=== PATIENT | male | born 1960 | race Caucasian/White ===

== ENCOUNTER 2020-09-06 19:56 | Emergency (ER) | payer MEDICARE ==
[2020-09-06] MEDS ORDERED: TENIVAC VIAL IM ONE ×2 (20:19→20:28)
[2020-09-06] MEDS ORDERED: Augmentin 875-125 Tablet PO ONE (20:27)
[2020-09-06] MEDS ORDERED: Augmentin 875-125 Tablet ONE (20:27)
--- NOTE | 2020-09-06 20:38 | ERPHSYRPT ---
- History of Present Illness Time Seen by Provider: 09/06/20 19:57 Source: patient Exam Limitations: no limitations Patient Subjective Stated Complaint: pt states he broke up a fight between his 2 dogs. states he got bit on his lt arm and rt hand. lt arm now has redness and swelling Triage Nursing Assessment: pt alert and oriented, answers questions approp. pt ambulatory with steady gait noted. respirations nonlabored. scabbing noted to lt forearm with redness surrounding and extending to wrist. warmth noted also Physician History: Patient is here for dog bite left forearm. Occurred 2 days ago. No falls or other trauma. Patient states has since gotten red, warm to the touch. It does appear infected. He has not been on any antibiotics. Has not seen his PCP. Location: left forearm dog bite Quality: redness, tender Radiation: none Severity: moderate Duration: 2 days Timing: after bite Modifying factors/associated signs and symptoms: not up to date on tdap Allergies/Adverse Reactions: No Known Drug Allergies Allergy (Verified 09/06/20 20:26) Hx Tetanus, Diphtheria Vaccination/Date Given: No (unsure) Hx Influenza Vaccination/Date Given: No Hx Pneumococcal Vaccination/Date Given: No Immunizations Up to Date: No Travel Risk - International Travel Have you traveled outside of the country in past 3 weeks: No - Coronavirus Screening Are you exhibiting any of the following symptoms?: No Close contact with a COVID-19 positive Pt in past 14-21 Days: No - Vaccine Status Have you recieved a Covid-19 vaccination: No - Review of Systems Constitutional: No Fever, No Chills Eyes: No Symptoms Ears, Nose, & Throat: No Symptoms Respiratory: No Cough, No Dyspnea Cardiac: No Chest Pain, No Edema, No Syncope Abdominal/Gastrointestinal: No Abdominal Pain, No Nausea, No Vomiting, No Diarrhea Genitourinary Symptoms: No Dysuria Musculoskeletal: Other (Dog bite left forearm), No Back Pain, No Neck Pain Skin: No Rash Neurological: No Dizziness, No Focal Weakness, No Sensory Changes Psychological: No Symptoms Endocrine: No Symptoms All Other Systems: Reviewed and Negative - Past Medical History Pertinent Past Medical History: Yes ENT History: Other GI Medical History: GERD Psycho-Social History: Anxiety Other Medical History: detatched retina x2 - Past Surgical History Past Surgical History: Yes Gastrointestinal: Cholecystectomy - Social History Smoking Status: Never smoker Drug Use: none - Nursing Vital Signs Nursing Vital Signs: Initial Vital Signs Temperature 98.2 F 09/06/20 20:08 Pulse Rate 97 H 09/06/20 20:08 Respiratory Rate 18 09/06/20 20:08 Blood Pressure 136/107 09/06/20 20:08 O2 Sat by Pulse Oximetry 97 09/06/20 20:08 Pain Scale Pain Intensity 5 - Physical Exam General Appearance: no apparent distress, alert Eye Exam: PERRL/EOMI, eyes nml inspection Ears, Nose, Throat Exam: normal ENT inspection, TMs normal, pharynx normal, moist mucous membranes Neck Exam: normal inspection, non-tender, supple, full range of motion Respiratory Exam: normal breath sounds, lungs clear, No respiratory distress Cardiovascular Exam: regular rate/rhythm, normal heart sounds, normal peripheral pulses Gastrointestinal/Abdomen Exam: soft, normal bowel sounds, No tenderness, No mass Back Exam: normal inspection, normal range of motion, No CVA tenderness, No vertebral tenderness Extremity Exam: normal inspection, normal range of motion, pelvis stable Neurologic Exam: alert, oriented x 3, cooperative, normal mood/affect, nml cerebellar function, nml station & gait, sensation nml, No motor deficits Skin Exam: normal color, warm, dry, No rash Lymphatic Exam: No adenopathy SpO2 Interpretation: normal SpO2: 97 Comments: 09/06/20 20:39 Patient has 2 well-healed dog bites to his right arm and hand. No obvious infection there. No redness tenderness or swelling. On his left forearm he has an area of abrasion and puncture wound. Both of these are well-healed. However, the surrounding tissue is red, tender to the touch. No areas of fluctuance or drainable abscess on my exam. 2+ pulses, no signs of compartment syndrome, no signs of foreign bodies. - Course Nursing assessment & vital signs reviewed: Yes Ordered Tests: Medication Summary Discontinued Medications Generic Name Dose Route Start Last Admin Trade Name Troyq PRN Reason Stop Dose Admin Amoxicillin/Clavulanate Potassium 875 mg 09/06/20 20:27 Augmentin 875-125 Tablet PO 09/06/20 20:28 STAT ONE Amoxicillin/Clavulanate Potassium Confirm 09/06/20 20:27 Augmentin 875-125 Tablet Administered 09/06/20 20:28 Dose 875 mg .ROUTE .STK-MED ONE Tetanus/Diphtheria Toxoids Adsorbed 0.5 ml 09/06/20 20:19 Tenivac Vial IM 09/06/20 20:20 .ONCE ONE Tetanus/Diphtheria Toxoids Adsorbed Confirm 09/06/20 20:28 Tenivac Vial Administered 09/06/20 20:29 Dose 0.5 ml IM .STK-MED ONE - Progress Progress: improved Progress Note: 09/06/20 20:39 No signs of abscess to drain on physical exam. Will give a tetanus shot to the patient. We will give his first dose of Augmentin tonight. He will have a 10- day course of Augmentin to go home with. - Departure Departure Disposition: Home Clinical Impression: Dog bite of left arm Condition: Stable Critical Care Time: No Referrals: JANET VELA [ACTIVE STAFF] - Provider,Unknown [Primary Care Provider] - Instructions: Animal Bites (DC) Prescriptions: Amox Tr/Potass Clav. 875 mg [Augmentin 875-125 Tablet] 875 mg PO BID 10 Days #20 tablet
[2020-09-06 21:10] VITALS: BP 149/93; PULSE 89; O2SAT 98
== END 2020-09-06 20:58 | disposition home or self-care (01) ==
LOC: ED 19:56
DX: S51.852A Open bite of left forearm, initial encounter (principal); S61.451A Open bite of right hand, initial encounter; M79.89 Other specified soft tissue disorders
CPT/HCPCS: 90471; 90714; 99283; A9270-GY

== ENCOUNTER 2021-02-05 09:50 | Emergency (ER) | payer BC, MEDICARE ==
[2021-02-05] MEDS ORDERED: Decadron 4 MG PO ONE (10:30)
--- NOTE | 2021-02-05 10:32 | ERPHSYRPT ---
- History of Present Illness Time Seen by Provider: 02/05/21 10:25 Source: patient Exam Limitations: no limitations Patient Subjective Stated Complaint: Went to [facility] on Monday and negative covid test and clear chest xrays, cough, states that he hasn't slept for a few d ays due to the cough Triage Nursing Assessment: Pt brought was brought to the ER by his , hypertensive, denies pain, states that he is exhaused from no sleep but doesn't have any issues other than the cough, skin n/w/d, pulses normal, denies N&V, denies diarrhea, doesn't appear to be in any distress Physician History: 60 years old male with a history of SHAMEKA D, neuropathy, hyperlipidemia presented in the ER with 1 week history of worsening minimal productive cough with some shortness of breath at times. Patient was seen outpatient at [facility] with negative chest x-ray and COVID-19 test and currently on doxycycline but still having same cough and shortness of breath. Patient feels weak fatigued tired, dizzy lightheaded, lack of energy to do his routine duties. Is vaccinated against COVID-19 with murder now. No fever or chills reported. Oxygen saturation around 96% on room air without any obvious difficulty breathing. Timing/Duration: week(s) (1), constant, gradual onset, worse Activities at Onset: activity Severity of Dyspnea-Max: moderate Severity of Dyspnea-Current: moderate Possible Cause: unknown cause Modifying Factors: Worsens With: coughing, deep breath, exertion Associated Symptoms: cough, chest pain/discomfort, wheezing, weakness, dizzin ess, productive cough, tightness, No fever, No insomnia, No heaviness, No heart racing, No lightheadedness, No leg swelling, No muscle spasms feet, No muscle spasms hands, No painful breathing Allergies/Adverse Reactions: No Known Drug Allergies Allergy (Verified 02/05/21 10:11) Home Medications: Doxycycline Hyclate 100 mg [Vibramycin 100 MG] 100 mg PO BID 02/05/21 [History] Gabapentin 100 mg [Neurontin 100 MG] 100 mg PO TID 02/05/21 [History] Hydroxyzine HCl 25 mg [Atarax 25 mg] 25 mg PO QID 02/05/21 [History] Omeprazole 40 mg PO DAILY 02/05/21 [History] Potassium Gluconate [Potassium] 99 mg PO DAILY 02/05/21 [History] Rosuvastatin Calcium [Crestor] 10 mg PO DAILY 02/05/21 [History] clonazePAM [Clonazepam] 0.5 mg PO DAILY 02/05/21 [History] Hx Tetanus, Diphtheria Vaccination/Date Given: No (unsure) Hx Influenza Vaccination/Date Given: No Hx Pneumococcal Vaccination/Date Given: No Travel Risk - International Travel Have you traveled outside of the country in past 3 weeks: No - Coronavirus Screening Are you exhibiting any of the following symptoms?: Yes Symptoms: Cough: New Onset - Vaccine Status Have you recieved a Covid-19 vaccination: Yes Expansion [employer] Builder: Moderna - Vaccination Dates Date of 2cond Vaccination (if applicable): 09/25/2020 - Review of Systems Constitutional: Fatigue, Weakness Eyes: No Symptoms Ears, Nose, & Throat: Nose Congestion, Throat Pain Respiratory: Cough, Wheezing Cardiac: No Symptoms Abdominal/Gastrointestinal: No Symptoms Genitourinary Symptoms: No Symptoms Musculoskeletal: No Symptoms Skin: No Symptoms Neurological: Dizziness, Headache Psychological: Anxiety Endocrine: No Symptoms Hematologic/Lymphatic: No Symptoms Immunological/Allergic: No Symptoms - Past Medical History Pertinent Past Medical History: Yes ENT History: Other GI Medical History: GERD Psycho-Social History: Anxiety Other Medical History: detatched retina x2 - Past Surgical History Past Surgical History: Yes Gastrointestinal: Cholecystectomy - Social History Smoking Status: Never smoker Exposure to second hand smoke: No Drug Use: none - Nursing Vital Signs Nursing Vital Signs: Initial Vital Signs Temperature 97.2 F 02/05/21 09:56 Pulse Rate 90 02/05/21 09:56 Respiratory Rate 24 02/05/21 09:56 Blood Pressure 152/107 02/05/21 09:56 O2 Sat by Pulse Oximetry 96 02/05/21 09:56 Pain Scale Pain Intensity 5 - Physical Exam General Appearance: no apparent distress, alert Eye Exam: PERRL/EOMI, eyes nml inspection Ears, Nose, Throat Exam: hearing grossly normal, nasal congestion, pharyngeal erythema Neck Exam: normal inspection, supple, full range of motion Respiratory Exam: rhonchi, wheezing, No respiratory distress Cardiovascular/Chest Exam: normal heart sounds, regular rate/rhythm Abdominal/Gastrointestinal Exam: soft, normal bowel sounds, No tenderness Extremity Exam: non-tender, normal range of motion Neurologic Exam: alert, oriented x 3, cooperative Skin Exam: normal color SpO2 Interpretation: normal SpO2: 97 O2 Delivery: Room Air - Course EKG Interpreted by Me: RATE (79), Sinus Rhythm, NORMAL AXIS, LAFB, NORMAL INTERVALS, Non-specific ST Changes Ordered Tests: Active Orders 24 hr Category Date Time Status Cash Application Representative STAT Care 02/05/21 10:26 Active EKG-ER Only STAT Care 02/05/21 10:25 Active CHEST 1 VIEW (PORTABLE) Stat Exams 02/05/21 10:25 Completed CHEST WITH CONTRAST [CT] Stat Exams 02/05/21 11:21 Completed CBC W DIFF Stat Lab 02/05/21 10:40 Completed CMP Stat Lab 02/05/21 10:40 Completed D-DIMER QUANTITATIVE Stat Lab 02/05/21 10:40 Completed Lactic Acid Stat Lab 02/05/21 10:55 Completed MAGNESIUM Stat Lab 02/05/21 10:40 Completed NT PRO BNP Stat Lab 02/05/21 10:40 Completed TROPONIN Q3H Lab 02/05/21 10:40 Completed TROPONIN Q3H Lab 02/05/21 13:25 Received TROPONIN Q3H Lab 02/05/21 16:30 Ordered TROPONIN Q3H Lab 02/05/21 19:30 Ordered TROPONIN Q3H Lab 02/05/21 22:30 Ordered UA W/RFX UR CULTURE Stat Lab 02/05/21 10:25 Completed Medication Summary Discontinued Medications Generic Name Dose Route Start Last Admin Trade Name Freq PRN Reason Stop Dose Admin Hydrocodone Bitart/Acetaminophen 10 ml 02/05/21 12:06 02/05/21 13:04 Hydrocodone-Acetamin 2.5-108/5 Ml Solution PO 02/05/21 12:07 10 ml STAT STA Administration Hydrocodone Bitart/Acetaminophen Confirm 02/05/21 13:02 Hydrocodone-Acetamin 2.5-108/5 Ml Solution Administered 02/05/21 13:03 Dose 10 ml .ROUTE .STK-MED ONE Dexamethasone 6 mg 02/05/21 10:30 02/05/21 10:44 Decadron 4 Mg PO 02/05/21 10:31 6 mg 1XONLY ONE Administration Lab/Rad Data: Laboratory Result Diagrams 02/05/21 10:40 02/05/21 10:40 Laboratory Results 02/05/21 02/05/21 02/05/21 Range/Units 10:55 10:40 10:40 WBC (4.0-10.5) K/mm3 RBC (4.1-5.6) M/mm3 Hgb (12.5-18.0) gm/dl Hct (42-50) % MCV (78-100) fl MCH (26-32) pg MCHC (32-36) g/dl RDW (11.5-14.0) % Plt Count (150-450) K/mm3 MPV (7.5-11.0) fl Gran % (36.0-66.0) % Eos # (Auto) (0-0.5) Absolute Lymphs (auto) (1.0-4.6) Absolute Monos (auto) (0.0-1.3) Lymphocytes % (24.0-44.0) % Monocytes % (0.0-12.0) % Eosinophils % (0.00-5.0) % Basophils % (0.0-0.4) % Absolute Granulocytes (1.4-6.9) Basophils # (0-0.4) D-Dimer (215-500) ng/mL Sodium 140 (137-145) mmol/L Potassium 3.5 (3.5-5.1) mmol/L Chloride 105 (98-107) mmol/L Carbon Dioxide 25 (22-30) mmol/L Anion Gap 13.1 (5-15) MEQ/L BUN 14 (9-20) mg/dL Creatinine 0.81 (0.66-1.25) mg/dL Estimated GFR > 60.0 ML/MIN Glucose 106 (74-106) mg/dL Lactic Acid 1.3 (0.4-2.0) Calcium 9.2 (8.4-10.2) mg/dL Magnesium (1.6-2.3) mg/dL Total Bilirubin 0.70 (0.2-1.3) mg/dL AST 23 (17-59) U/L ALT 18 (0-50) U/L Alkaline Phosphatase 93 (38-126) U/L Troponin I < 0.012 (0.000-0.034) ng/mL NT-Pro-B Natriuret Pep (0-900) pg/mL Serum Total Protein 6.7 (6.3-8.2) g/dL Albumin 4.1 (3.5-5.0) g/dL Urine Color (YELLOW) Urine Appearance (CLEAR) Urine pH (5-6) Ur Specific [place] (1.005-1.025) Urine Protein (Negative) Urine Ketones (NEGATIVE) Urine Blood (0-5) Edd/ul Urine Nitrite (NEGATIVE) Urine Bilirubin (NEGATIVE) Urine Urobilinogen (0-1) mg/dL Ur Leukocyte Esterase (NEGATIVE) Urine WBC (Auto) (0-5) /HPF Urine RBC (Auto) (0-2) /HPF U Epithel Cells (Auto) (FEW) /HPF Urine Bacteria (Auto) (NEGATIVE) /HPF Urine Mucus (Auto) (NEGATIVE) /HPF Urine Culture Reflexed (NO) Urine Glucose (NEGATIVE) mg/dL 02/05/21 02/05/21 02/05/21 Range/Units 10:40 10:40 10:40 WBC 6.8 (4.0-10.5) K/mm3 RBC 5.03 (4.1-5.6) M/mm3 Hgb 14.1 (12.5-18.0) gm/dl Hct 42.0 (42-50) % MCV 83.5 (78-100) fl MCH 28.0 (26-32) pg MCHC 33.6 (32-36) g/dl RDW 13.6 (11.5-14.0) % Plt Count 171 (150-450) K/mm3 MPV 10.7 (7.5-11.0) fl Gran % 62.6 (36.0-66.0) % Eos # (Auto) 0.27 (0-0.5) Absolute Lymphs (auto) 1.71 (1.0-4.6) Absolute Monos (auto) 0.56 (0.0-1.3) Lymphocytes % 25.1 (24.0-44.0) % Monocytes % 8.2 (0.0-12.0) % Eosinophils % 4.0 (0.00-5.0) % Basophils % 0.1 (0.0-0.4) % Absolute Granulocytes 4.26 (1.4-6.9) Basophils # 0.01 (0-0.4) D-Dimer 912 H* (215-500) ng/mL Sodium (137-145) mmol/L Potassium (3.5-5.1) mmol/L Chloride (98-107) mmol/L Carbon Dioxide (22-30) mmol/L Anion Gap (5-15) MEQ/L BUN (9-20) mg/dL Creatinine (0.66-1.25) mg/dL Estimated GFR ML/MIN Glucose (74-106) mg/dL Lactic Acid (0.4-2.0) Calcium (8.4-10.2) mg/dL Magnesium 1.8 (1.6-2.3) mg/dL Total Bilirubin (0.2-1.3) mg/dL AST (17-59) U/L ALT (0-50) U/L Alkaline Phosphatase (38-126) U/L Troponin I (0.000-0.034) ng/mL NT-Pro-B Natriuret Pep 88.3 (0-900) pg/mL Serum Total Protein (6.3-8.2) g/dL Albumin (3.5-5.0) g/dL Urine Color (YELLOW) Urine Appearance (CLEAR) Urine pH (5-6) Ur Specific [place] (1.005-1.025) Urine Protein (Negative) Urine Ketones (NEGATIVE) Urine Blood (0-5) Edd/ul Urine Nitrite (NEGATIVE) Urine Bilirubin (NEGATIVE) Urine Urobilinogen (0-1) mg/dL Ur Leukocyte Esterase (NEGATIVE) Urine WBC (Auto) (0-5) /HPF Urine RBC (Auto) (0-2) /HPF U Epithel Cells (Auto) (FEW) /HPF Urine Bacteria (Auto) (NEGATIVE) /HPF Urine Mucus (Auto) (NEGATIVE) /HPF Urine Culture Reflexed (NO) Urine Glucose (NEGATIVE) mg/dL 02/05/21 Range/Units 10:25 WBC (4.0-10.5) K/mm3 RBC (4.1-5.6) M/mm3 Hgb (12.5-18.0) gm/dl Hct (42-50) % MCV (78-100) fl MCH (26-32) pg MCHC (32-36) g/dl RDW (11.5-14.0) % Plt Count (150-450) K/mm3 MPV (7.5-11.0) fl Gran % (36.0-66.0) % Eos # (Auto) (0-0.5) Absolute Lymphs (auto) (1.0-4.6) Absolute Monos (auto) (0.0-1.3) Lymphocytes % (24.0-44.0) % Monocytes % (0.0-12.0) % Eosinophils % (0.00-5.0) % Basophils % (0.0-0.4) % Absolute Granulocytes (1.4-6.9) Basophils # (0-0.4) D-Dimer (215-500) ng/mL Sodium (137-145) mmol/L Potassium (3.5-5.1) mmol/L Chloride (98-107) mmol/L Carbon Dioxide (22-30) mmol/L Anion Gap (5-15) MEQ/L BUN (9-20) mg/dL Creatinine (0.66-1.25) mg/dL Estimated GFR ML/MIN Glucose (74-106) mg/dL Lactic Acid (0.4-2.0) Calcium (8.4-10.2) mg/dL Magnesium (1.6-2.3) mg/dL Total Bilirubin (0.2-1.3) mg/dL AST (17-59) U/L ALT (0-50) U/L Alkaline Phosphatase (38-126) U/L Troponin I (0.000-0.034) ng/mL NT-Pro-B Natriuret Pep (0-900) pg/mL Serum Total Protein (6.3-8.2) g/dL Albumin (3.5-5.0) g/dL Urine Color YELLOW (YELLOW) Urine Appearance CLEAR (CLEAR) Urine pH 6.0 (5-6) Ur Specific [place] 1.015 (1.005-1.025) Urine Protein NEGATIVE (Negative) Urine Ketones NEGATIVE (NEGATIVE) Urine Blood SMALL (0-5) Edd/ul Urine Nitrite NEGATIVE (NEGATIVE) Urine Bilirubin NEGATIVE (NEGATIVE) Urine Urobilinogen NEGATIVE (0-1) mg/dL Ur Leukocyte Esterase NEGATIVE (NEGATIVE) Urine WBC (Auto) 3-5 (0-5) /HPF Urine RBC (Auto) 0-2 (0-2) /HPF U Epithel Cells (Auto) NONE (FEW) /HPF Urine Bacteria (Auto) NONE SEEN (NEGATIVE) /HPF Urine Mucus (Auto) SLIGHT (NEGATIVE) /HPF Urine Culture Reflexed NO (NO) Urine Glucose NEGATIVE (NEGATIVE) mg/dL - Progress Progress: improved, re-examined Air Movement: good Progress Note: 02/05/21 13:40 60-year-old is evaluated for worsening cough and flulike symptoms. Patient has stable vitals with maintaining of oxygen saturation around 97% at room air while in the ER without any obvious shortness of breath. Feeling much better after liquid Lortab which did help with cough. Lung grossly clear to auscultation. Grossly unremarkable lab work. Had mildly elevated D-dimer and CTA negative for pulmonary embolism but did show left upper lobe airspace disease. Patient has been taking doxycycline for the last few days and I will switch him to Levaquin and will give short course of steroid along with inhaler and some cough medications. Patient is immunized against COVID-19 and even if he have it Covid infection, statistics show it is not very worse. I think patient can be manag ed with outpatient treatment. Discussed in length about signs symptoms of worsening needing return to ER which he seems understanding. Stable for discharge. 02/05/21 13:42 Blood Culture(s) Obtained: Yes Antibiotics given: Yes Counseled pt/family regarding: lab results, diagnosis, need for follow-up, rad results - Departure Departure Disposition: Home Clinical Impression: Viral syndrome Pneumonia Qualifiers: Pneumonia type: due to unspecified organism Laterality: left Lung location: upper lobe of lung Qualified Code(s): J18.9 - Pneumonia, unspecified organism Condition: Stable Critical Care Time: No Referrals: DOCTOR,NO FAMILY [Primary Care Provider] - ROSA ISELA HONG MD [ACTIVE STAFF] - Follow Up with PCP/3 days Instructions: Pneumonia, Adult (DC), Cough, Adult (DC) Additional Instructions: Use albuterol inhaler and cough medications as needed. Continue with Levaquin and start taking doxycycline. Follow-up with your primary care physician for reevaluation in 3 days/early next week. Return to ER for worsening cough or if develop shortness of breath/persistent fever chills/chest pain etc. Prescriptions: Dexamethasone [Decadron] 6 mg PO DAILY #5 tablet Levofloxacin [Levaquin 500 MG Tablet] 500 mg PO DAILY #9 tablet Albuterol 8 gm Mdi Hfa [Ventolin Hfa MDI] 8 gm IH Q4H #1 gm
--- NOTE | 2021-02-05 10:45 | XRAY ---
Indication: Cough. Comparison: None Portable chest demonstrates minimal left base subsegmental atelectasis/scarring. Remaining heart and lungs unremarkable. Bony thorax intact with mild degenerative changes.
[2021-02-05 10:51] LABS: Absolute Neutrophil Ct (ANC) 4.26 (1.4-6.9); BASOPHIL % 0.1 % (0.0-0.4); Basophil (Absolute #) 0.01 (0-0.4); Eosinophil (Absolute #) 0.27 (0-0.5); Hemoglobin 14.1 gm/dl (12.5-18.0); Lymphocyte (Absolute #) 1.71 (1.0-4.6); Lymphocytes % 25.1 % (24.0-44.0); Mean Cell Volume 83.5 fl (78-100); Mean Corpuscular Hgb Concent. 33.6 g/dl (32-36); Mean Platelet Volume 10.7 fl (7.5-11.0); Monocyte (Absolute #) 0.56 (0.0-1.3); Monocytes % 8.2 % (0.0-12.0); Neutrophil % 62.6 % (36.0-66.0); Platelet Count 171 K/mm3 (150-450); Red Blood Count 5.03 M/mm3 (4.1-5.6); Red Cell Distribution Width 13.6 % (11.5-14.0); White Blood Count 6.8 K/mm3 (4.0-10.5)
[2021-02-05 11:11] LABS: MAGNESIUM 1.8 mg/dL (1.6-2.3); NT PRO BNP 88.3 pg/mL (0-900)
[2021-02-05 11:38] LABS: ALBUMIN 4.1 g/dL (3.5-5.0); ALKALINE PHOSPHATASE 93 U/L (38-126); ANION GAP 13.1 MEQ/L (5-15); BLOOD UREA NITROGEN 14 mg/dL (9-20); CHLORIDE 105 mmol/L (98-107); Calcium 9.2 mg/dL (8.4-10.2); Carbon Dioxide 25 mmol/L (22-30); Creatinine 1 0.81 mg/dL (0.66-1.25); EST GLOMERULAR FILTRATION RATE > 60.0 ML/MIN; Glucose 106 mg/dL (74-106); Potassium 3.5 mmol/L (3.5-5.1); SGOT/AST 23 U/L (17-59); SGPT/ALT 18 U/L (0-50); SODIUM 140 mmol/L (137-145); Total Protein 6.7 g/dL (6.3-8.2)
[2021-02-05 11:44] LABS: Appearance CLEAR (CLEAR); Bilirubin NEGATIVE (NEGATIVE); Blood SMALL Ery/ul (0-5); Glucose NEGATIVE (NEGATIVE); Ketones NEGATIVE (NEGATIVE); Leukocyte Esterase NEGATIVE (NEGATIVE); Mucus SLIGHT /HPF (NEGATIVE); Nitrite NEGATIVE (NEGATIVE); Protein,Urine Dip NEGATIVE (Negative); RBC 0-2 /HPF (0-2); Specific Gravity 1.015 (1.005-1.025); Urobilinogen NEGATIVE mg/dL (0-1)
[2021-02-05 11:46] LABS: Bacteria NONE SEEN /HPF (NEGATIVE)
[2021-02-05] MEDS ORDERED: HYDROCODONE-ACETAMIN 2.5-108/5 ML SOLUTION PO STA (12:06)
[2021-02-05] MEDS ORDERED: HYDROCODONE-ACETAMIN 2.5-108/5 ML SOLUTION ONE (13:02)
[2021-02-05 13:10] VITALS: BP 152/94; PULSE 58; O2SAT 97
--- NOTE | 2021-02-05 13:15 | XRAY ---
Indication: Cough, short of breath, and weakness. Elevated d-dimer. Suspect Covid 19. Multiple contiguous axial images obtained through the chest using 80 cc Isovue 370 contrast and PE protocol. Comparison: None Good opacification of the pulmonary arteries to include the lobar and segmental branches. No pulmonary embolus. Heart is not enlarged. Aorta is normal in course and caliber. Small mediastinal lymph nodes. No pathologic mediastinal/hilar lymphadenopathy. Lungs are underinflated with minimal lingula and bibasilar subsegmental atelectasis/scarring. Posterior right upper lobe demonstrates 1.2 cm focus of patchy groundglass airspace opacity. No consolidation or effusion. Bony thorax intact with mild flowing osteophytes throughout the spine. Limited upper abdomen demonstrates mild fatty liver and cholecystectomy clips. Impression: 1. Negative pulmonary embolus. 2. Solitary 1.2 cm focus of right upper lobe patchy ground glass airspace opacity. 3. Fatty liver.
[2021-02-05] MEDS ORDERED: Levofloxacin 250MG Tablet PO ONE (13:38)
[2021-02-05] MEDS ORDERED: Levofloxacin 250MG Tablet ONE (13:49)
== END 2021-02-05 14:20 | disposition home or self-care (01) ==
LOC: ED 09:50
DX: B34.9 Viral infection, unspecified (principal); J18.9 Pneumonia, unspecified organism
CPT/HCPCS: 36000; 36415; 71045; 71260; 80053; 81001; 83605; 83735; 83880; 84484; 85025; 85379; 87040; 93005; 93041; 99284; U0003; A9270-GY

== ENCOUNTER 2021-05-06 04:46 | Emergency (ER) | payer BC, MEDICARE ==
[2021-05-06 05:08] VITALS: BP 147/98; PULSE 84; O2SAT 98
[2021-05-06] MEDS ORDERED: DECADRON 10MG INJ. IM ONE (05:10)
--- NOTE | 2021-05-06 05:12 | ERPHSYRPT ---
- History of Present Illness Time Seen by Provider: 05/06/21 04:59 Patient Subjective Stated Complaint: Patient c/o "a lump in my neck behind my jaw" upon waking this am. Pointing to left side of face/neck. Patient denies trouble swallowing or SOB. Rates pain as a #5 on 0-10 scale. Triage Nursing Assessment: Patient ambulated back to ED. He is alert and oriented and answering questions appropriately. Skin tone raised area/swelling noted to external left side of neck. Lymph node swollen. Inside of mouth examined with no swelling or sore noted. No SOB noted. Physician History: 60-year-old male presented to the ER with chief complaint of left angle of mandible pain and swelling upon waking up this morning prior to arrival. Dull aching to sharp, moderate intensity, more with movements of jaw and better with being still. No difficulty breathing or swallowing. No fever or chills reported. Denies any recent URI. Timing/Duration: abrupt onset, this morning Severity: moderate ENT Location: facial Prearrival Treatment: no prearrival treatment Associated Symptoms: facial pain/swelling, swollen glands Allergies/Adverse Reactions: No Known Drug Allergies Allergy (Verified 05/06/21 04:56) Home Medications: Gabapentin 100 mg [Neurontin 100 MG] 100 mg PO TID 02/05/21 [History] Hydroxyzine HCl 25 mg [Atarax 25 mg] 50 mg PO HS 02/05/21 [History] Omeprazole 40 mg PO DAILY 02/05/21 [History] Rosuvastatin Calcium [Crestor] 10 mg PO DAILY 02/05/21 [History] Cariprazine HCl [Vraylar] 1.5 mg PO DAILY 05/06/21 [History] Sildenafil Citrate [Revatio] 20 mg PO DAILY PRN PRN 05/06/21 [History] Hx Tetanus, Diphtheria Vaccination/Date Given: No (unsure) Hx Influenza Vaccination/Date Given: Yes Hx Pneumococcal Vaccination/Date Given: No Immunizations Up to Date: Yes Travel Risk - International Travel Have you traveled outside of the country in past 3 weeks: No - Coronavirus Screening Are you exhibiting any of the following symptoms?: No Close contact with a COVID-19 positive Pt in past 14-21 Days: No - Vaccine Status Have you recieved a Covid-19 vaccination: Yes Carton Marker Machine: Moderna - Vaccination Dates Date of 2cond Vaccination (if applicable): September 2020 - Review of Systems Constitutional: No Symptoms Eyes: No Symptoms Ears, Nose, & Throat: Other (Right mandible at the angle of jaw/upper neck) Respiratory: No Symptoms Cardiac: No Symptoms Abdominal/Gastrointestinal: No Symptoms Genitourinary Symptoms: No Symptoms Musculoskeletal: No Symptoms Skin: No Symptoms Neurological: No Symptoms Psychological: No Symptoms Endocrine: No Symptoms Hematologic/Lymphatic: No Symptoms Immunological/Allergic: No Symptoms - Past Medical History Pertinent Past Medical History: Yes ENT History: Other GI Medical History: GERD Psycho-Social History: Anxiety, Depression Other Medical History: detatched retina x2 - Past Surgical History Past Surgical History: Yes Gastrointestinal: Cholecystectomy Other Surgical History: Tubes in ears when a child and 2 hernia repairs - Social History Smoking Status: Never smoker Exposure to second hand smoke: No Drug Use: none Patient Lives Alone: No - Nursing Vital Signs Nursing Vital Signs: Initial Vital Signs Temperature 97.4 F 05/06/21 04:57 Pulse Rate 84 05/06/21 04:57 Respiratory Rate 20 05/06/21 04:57 Blood Pressure 147/98 05/06/21 04:57 O2 Sat by Pulse Oximetry 98 05/06/21 04:57 Pain Scale Pain Intensity 5 - Physical Exam General Appearance: no apparent distress, alert Eye Exam: bilateral eye: normal inspection, PERRL, EOMI Ear Exam: left ear: other (Swelling in t swelling anterior to right ear, angle mandible and upper neck with no increased temperature. Minimal tenderness.), bilateral ear: auricle normal, canal normal, TM normal Nasal Exam: normal inspection Throat Exam: normal, pharynx normal, No dental tenderness Neck Exam: normal inspection, non-tender, supple, full range of motion Cardiovascular/Respiratory Exam: normal breath sounds, regular rate/rhythm Neurologic Exam: alert, oriented x 3, cooperative, die cast technician II-XII nml as tested Skin Exam: normal color SpO2 Interpretation: normal SpO2: 98 O2 Delivery: Room Air Ordered Tests: Medication Summary Discontinued Medications Generic Name Dose Route Start Last Admin Trade Name Freq PRN Reason Stop Dose Admin Dexamethasone Sodium Phosphate 10 mg 05/06/21 05:10 05/06/21 05:30 Dexamethasone Sod Phosphate 10 Mg/Ml IM 05/06/21 05:11 10 mg STAT ONE Administration Dexamethasone Sodium Phosphate Confirm 05/06/21 05:28 Dexamethasone Sod Phosphate 10 Mg/Ml Administered 05/06/21 05:29 Dose 10 mg .ROUTE .STK-MED ONE - Progress Progress: unchanged Progress Note: 05/06/21 05:09 Seems like parotid swelling, given steroids and will put on a short course of steroid outpatient follow-up recommended. Counseled pt/family regarding: diagnosis, need for follow-up - Departure Departure Disposition: Home Clinical Impression: Parotid swelling Condition: Stable Critical Care Time: No Referrals: DOCTOR,NO FAMILY [Primary Care Provider] - Follow up/PCP as directed RACHEL CONDE MD [ACTIVE STAFF] - Follow Up with PCP/3 days Instructions: Parotitis Additional Instructions: Tylenol as needed. Continue with steroids. Follow-up with primary care for reevaluation. Return to ER if having difficulty swallowing/breathing, increased swelling/redness/pain/fever chills etc. Prescriptions: Prednisone 20 mg [Deltasone 20 mg] 60 mg PO DAILY 5 Days #15 tablet
[2021-05-06] MEDS ORDERED: DECADRON 10MG INJ. ONE (05:28)
== END 2021-05-06 05:42 | disposition home or self-care (01) ==
LOC: ED 04:46
DX: K11.8 Other diseases of salivary glands (principal)
CPT/HCPCS: 96372; 99283; J1100

== ENCOUNTER 2021-05-23 08:12 | Emergency (ER) | payer BC, MEDICARE ==
[2021-05-23] MEDS: VENTOLIN COMMON CANISTER IH ONE (08:55)
[2021-05-23] MEDS ORDERED: Sodium Chloride 0.9% 1000 ML 1,000 ML ONE (09:02)
[2021-05-23] MEDS: Sodium Chloride 0.9% 1000 ML 1,000 ML IV STA (09:06)
--- NOTE | 2021-05-23 09:27 | ERPHSYRPT ---
- History of Present Illness Time Seen by Provider: 05/23/21 08:45 Source: patient Patient Subjective Stated Complaint: Pt stated that he was tested for covid last week and is positive and is coughing and is fatigued, pt lays down and tries to sleep and he can't breath and so he has to get up Triage Nursing Assessment: Pt brought to the ER by his , vitals wnl, denies pain, cough, congestion, denies SOB, has only coughed up green mucus a couple of times, diarrhea at the beginning but not now, doesn't appear to be in any distress Physician History: Patient is a 60-year-old male who presents with a history of a positive Covid test 1 week ago. He has been monitoring his O2 sats at home and they seem to be doing well he complains today of severe cough nonproductive essentially and chest pain with a cough. He denies fever chills sweats and other than diarrhea initially no other symptoms such as headache or loss of sense of taste or smell. He did receive 2 rounds of the Moderna vaccine. Timing/Duration: day(s) (), constant Cough Quality/Degree: dry cough Possible Cause: no prior episodes Allergies/Adverse Reactions: No Known Drug Allergies Allergy (Verified 05/23/21 08:32) Home Medications: Gabapentin 100 mg [Neurontin 100 MG] 100 mg PO TID 02/05/21 [History] Hydroxyzine HCl 25 mg [Atarax 25 mg] 50 mg PO HS 02/05/21 [History] Omeprazole 40 mg PO DAILY 02/05/21 [History] Rosuvastatin Calcium [Crestor] 10 mg PO DAILY 02/05/21 [History] Cariprazine HCl [Vraylar] 1.5 mg PO DAILY 05/06/21 [History] Sildenafil Citrate [Revatio] 20 mg PO DAILY PRN PRN 05/06/21 [History] Hx Tetanus, Diphtheria Vaccination/Date Given: No (unsure) Hx Influenza Vaccination/Date Given: Yes Hx Pneumococcal Vaccination/Date Given: No Travel Risk - International Travel Have you traveled outside of the country in past 3 weeks: No - Coronavirus Screening Symptoms: Cough: New Onset, Vomiting/Diarrhea, Headaches/Body Aches/Fatigue Close contact with a COVID-19 positive Pt in past 14-21 Days: No - Vaccine Status Have you recieved a Covid-19 vaccination: Yes Seismograph Shooter: Moderna - Vaccination Dates Date of 2cond Vaccination (if applicable): September 2020 - Review of Systems Constitutional: Malaise, Weakness, No Fever, No Chills Eyes: No Symptoms Ears, Nose, & Throat: No Symptoms Respiratory: Cough, Dyspnea Cardiac: Chest Pain, No Edema, No Syncope Abdominal/Gastrointestinal: Diarrhea, No Abdominal Pain, No Nausea, No Vomiting Genitourinary Symptoms: No Dysuria Musculoskeletal: No Back Pain, No Neck Pain Skin: No Rash Neurological: No Dizziness, No Focal Weakness, No Sensory Changes Psychological: No Symptoms Endocrine: No Symptoms All Other Systems: Reviewed and Negative - Past Medical History Pertinent Past Medical History: Yes ENT History: Other GI Medical History: GERD Psycho-Social History: Anxiety, Depression Other Medical History: detatched retina x2 - Past Surgical History Past Surgical History: Yes Gastrointestinal: Cholecystectomy Other Surgical History: Tubes in ears when a child and 2 hernia repairs - Social History Smoking Status: Never smoker Exposure to second hand smoke: No Drug Use: none Patient Lives Alone: No - Nursing Vital Signs Nursing Vital Signs: Initial Vital Signs Temperature 97.5 F 05/23/21 08:20 Pulse Rate 87 05/23/21 08:20 Blood Pressure 119/96 05/23/21 08:20 O2 Sat by Pulse Oximetry 98 05/23/21 08:20 Pain Scale Pain Intensity 0 - Physical Exam General Appearance: mild distress, alert Eye Exam: PERRL/EOMI, eyes nml inspection Ears, Nose, Throat Exam: normal ENT inspection, TMs normal, pharynx normal, moist mucous membranes Neck Exam: normal inspection, non-tender, supple, full range of motion Respiratory Exam: normal breath sounds, lungs clear, No respiratory distress Cardiovascular Exam: regular rate/rhythm, normal heart sounds Gastrointestinal/Abdomen Exam: soft, No tenderness Back Exam: normal inspection, No CVA tenderness, No vertebral tenderness Extremity Exam: normal inspection, normal range of motion Neurologic Exam: alert, oriented x 3, cooperative, normal mood/affect, sensation nml, No motor deficits Skin Exam: normal color, warm, dry, No rash Lymphatic Exam: No adenopathy SpO2: 94 - Course Nursing assessment & vital signs reviewed: Yes - Radiology Exams Chest X-ray Interpretation: Interpreted by me, Other (Restful left lower lobe atelectasis) - CT Exams Chest CT Interpretation: Negative Ordered Tests: Active Orders 24 hr Category Date Time Status CHEST 1 VIEW (PORTABLE) Stat Exams 05/23/21 08:51 Taken CHEST WITH CONTRAST [CT] Stat Exams 05/23/21 09:46 Taken CBC W DIFF Stat Lab 05/23/21 09:10 Completed CMP Stat Lab 05/23/21 09:10 Completed D-DIMER QUANTITATIVE Stat Lab 05/23/21 09:10 Completed Lactic Acid Stat Lab 05/23/21 09:50 Completed Manual Differential NC Stat Lab 05/23/21 09:10 Completed PROTIME WITH INR Stat Lab 05/23/21 09:10 Completed Respiratory MDI ONCE RT 05/23/21 08:55 Active Respiratory Therapy Assessment ONCE RT 05/23/21 10:05 Active Medication Summary Discontinued Medications Generic Name Dose Route Start Last Admin Trade Name Freq PRN Reason Stop Dose Admin Albuterol Sulfate 2.5 mg 05/23/21 08:50 05/23/21 10:06 Albuterol Sulfate 2.5 Mg/3 Ml Neb 05/23/21 08:51 Not Given STAT ONE Albuterol Sulfate 4 puff 05/23/21 08:55 05/23/21 08:55 Albuterol Common Canister Inhaler 05/23/21 08:56 4 puff ONCE ONE Administration Sodium Chloride 1,000 mls @ 999 mls/hr 05/23/21 08:50 05/23/21 10:11 Sodium Chloride 0.9% 1000 Ml IV 05/23/21 09:50 Infused .Q1H1M STA Infusion Sodium Chloride Confirm 05/23/21 09:02 Sodium Chloride 0.9% 1000 Ml Administered 05/23/21 09:03 Dose 1,000 mls @ ud .ROUTE .STK-MED ONE Lab/Rad Data: Laboratory Result Diagrams 05/23/21 09:10 05/23/21 09:10 Laboratory Results 05/23/21 05/23/21 05/23/21 Range/Units 09:50 09:10 09:10 WBC (4.0-10.5) K/mm3 RBC (4.1-5.6) M/mm3 Hgb (12.5-18.0) gm/dl Hct (42-50) % MCV (78-100) fl MCH (26-32) pg MCHC (32-36) g/dl RDW (11.5-14.0) % Plt Count (150-450) K/mm3 MPV (7.5-11.0) fl Gran % (36.0-66.0) % Eos # (Auto) (0-0.5) Absolute Lymphs (auto) (1.0-4.6) Absolute Monos (auto) (0.0-1.3) Lymphocytes % (24.0-44.0) % Monocytes % (0.0-12.0) % Eosinophils % (0.00-5.0) % Basophils % (0.0-0.4) % Absolute Granulocytes (1.4-6.9) Basophils # (0-0.4) PT 12.4 (9.4-12.5) SECONDS INR 1.05 (0.8-3.0) D-Dimer 1086 H* (215-500) ng/mL Sodium 139 (137-145) mmol/L Potassium 4.3 (3.5-5.1) mmol/L Chloride 104 (98-107) mmol/L Carbon Dioxide 26 (22-30) mmol/L Anion Gap 13.7 (5-15) MEQ/L BUN 13 (9-20) mg/dL Creatinine 0.88 (0.66-1.25) mg/dL Estimated GFR > 60.0 ML/MIN Glucose 98 (74-106) mg/dL Lactic Acid 1.0 (0.4-2.0) Calcium 9.6 (8.4-10.2) mg/dL Total Bilirubin 0.50 (0.2-1.3) mg/dL AST 24 (17-59) U/L ALT 23 (0-50) U/L Alkaline Phosphatase 119 (38-126) U/L Serum Total Protein 6.7 (6.3-8.2) g/dL Albumin 4.1 (3.5-5.0) g/dL 05/23/21 Range/Units 09:10 WBC 8.9 (4.0-10.5) K/mm3 RBC 5.49 (4.1-5.6) M/mm3 Hgb 15.1 (12.5-18.0) gm/dl Hct 44.8 (42-50) % MCV 81.6 (78-100) fl MCH 27.5 (26-32) pg MCHC 33.7 (32-36) g/dl RDW 13.1 (11.5-14.0) % Plt Count 284 (150-450) K/mm3 MPV 10.7 (7.5-11.0) fl Gran % 66.3 H (36.0-66.0) % Eos # (Auto) 0.29 (0-0.5) Absolute Lymphs (auto) 2.15 (1.0-4.6) Absolute Monos (auto) 0.55 (0.0-1.3) Lymphocytes % 24.1 (24.0-44.0) % Monocytes % 6.2 (0.0-12.0) % Eosinophils % 3.2 (0.00-5.0) % Basophils % 0.2 (0.0-0.4) % Absolute Granulocytes 5.92 (1.4-6.9) Basophils # 0.02 (0-0.4) PT (9.4-12.5) SECONDS INR (0.8-3.0) D-Dimer (215-500) ng/mL Sodium (137-145) mmol/L Potassium (3.5-5.1) mmol/L Chloride (98-107) mmol/L Carbon Dioxide (22-30) mmol/L Anion Gap (5-15) MEQ/L BUN (9-20) mg/dL Creatinine (0.66-1.25) mg/dL Estimated GFR ML/MIN Glucose (74-106) mg/dL Lactic Acid (0.4-2.0) Calcium (8.4-10.2) mg/dL Total Bilirubin (0.2-1.3) mg/dL AST (17-59) U/L ALT (0-50) U/L Alkaline Phosphatase (38-126) U/L Serum Total Protein (6.3-8.2) g/dL Albumin (3.5-5.0) g/dL - Progress Progress: improved Air Movement: good Blood Culture(s) Obtained: No Antibiotics given: No - Departure Departure Disposition: Home Clinical Impression: 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
[2021-05-23 09:31] LABS: Absolute Neutrophil Ct (ANC) 5.92 (1.4-6.9); BASOPHIL % 0.2 % (0.0-0.4); Basophil (Absolute #) 0.02 (0-0.4); Eosinophil % 3.2 % (0.00-5.0); Eosinophil (Absolute #) 0.29 (0-0.5); Hematocrit 44.8 % (42-50); Hemoglobin 15.1 gm/dl (12.5-18.0); Lymphocyte (Absolute #) 2.15 (1.0-4.6); Lymphocytes % 24.1 % (24.0-44.0); Mean Cell Volume 81.6 fl (78-100); Mean Corpuscular Hemoglobin 27.5 pg (26-32); Mean Corpuscular Hgb Concent. 33.7 g/dl (32-36); Mean Platelet Volume 10.7 fl (7.5-11.0); Monocyte (Absolute #) 0.55 (0.0-1.3); Monocytes % 6.2 % (0.0-12.0); Neutrophil % 66.3 % (36.0-66.0); Platelet Count 284 K/mm3 (150-450); Red Blood Count 5.49 M/mm3 (4.1-5.6); Red Cell Distribution Width 13.1 % (11.5-14.0); White Blood Count 8.9 K/mm3 (4.0-10.5)
[2021-05-23 09:36] LABS: INR 1.05 (0.8-3.0); PROTIME 12.4 SECONDS (9.4-12.5)
[2021-05-23 09:43] LABS: ALBUMIN 4.1 g/dL (3.5-5.0); ALKALINE PHOSPHATASE 119 U/L (38-126); ANION GAP 13.7 MEQ/L (5-15); BLOOD UREA NITROGEN 13 mg/dL (9-20); CHLORIDE 104 mmol/L (98-107); Calcium 9.6 mg/dL (8.4-10.2); Carbon Dioxide 26 mmol/L (22-30); Creatinine 1 0.88 mg/dL (0.66-1.25); EST GLOMERULAR FILTRATION RATE > 60.0 ML/MIN; Glucose 98 mg/dL (74-106); Potassium 4.3 mmol/L (3.5-5.1); SGOT/AST 24 U/L (17-59); SGPT/ALT 23 U/L (0-50); SODIUM 139 mmol/L (137-145); Total Protein 6.7 g/dL (6.3-8.2)
[2021-05-23] MEDS: PROVENTIL 2.5 MG/3 ML NEB IH ONE (10:06)
[2021-05-23 10:13] VITALS: BP 132/118; PULSE 75
[2021-05-23 12:38] VITALS: O2SAT 94
[2021-05-23 14:14] LABS: BAND 1 % (0.0-2.0); Basophil 1 % (0.0-1.0); Eosinophil 2 % (0.00-3.0); Lymphocytes 25 % (24-44); Monocyte 5 % (0.0-12.0); Neutrophils 66 % (36.-66.); Platelet Estimate NORMAL (NORMAL); Total Cells Counted 100
--- NOTE | 2021-05-23 19:07 | XRAY ---
Indication: Covid 19. Elevated d-dimer. Pulmonary embolus. Multiple contiguous axial images obtained through the chest using 100 cc Isovue 370 contrast and PE protocol. Comparison: February 05, 2021. There is good opacification of the pulmonary arteries to include the lobar and segmental branches. No pulmonary embolus. Heart not enlarged. Aorta is normal in course and caliber. No pathologic mediastinal/hilar lymphadenopathy. Lungs again demonstrates minimal bilateral mid to lower lung subsegmental atelectasis/scarring. No suspicious pulmonary mass, infiltrate, or effusion. Bony thorax intact again with mild flowing osteophytes throughout the spine. Limited upper abdomen again demonstrates fatty liver and cholecystectomy. Impression: 1. Continued negative pulmonary embolus. No new/acute cardiopulmonary abnormalities. 2. Again incidental fatty liver. Comment: Preliminary interpretation made by [facility]. No critical discrepancy.
--- NOTE | 2021-05-23 19:08 | XRAY ---
Indication: Cough. Positive Covid 19. Comparison: February 05, 2021. Portable chest unchanged again demonstrating left base subsegmental atelectasis/scarring. Remaining heart and lungs unremarkable. Bony thorax intact again with mild degenerative changes. No new/acute abnormalities.
== END 2021-05-23 12:46 | disposition home or self-care (01) ==
LOC: ED 08:12
DX: R05.3 Chronic cough (principal); U09.9 Post COVID-19 condition, unspecified; Z79.891 Long term (current) use of opiate analgesic
CPT/HCPCS: 36415; 71045; 71260; 80053; 83605; 85025; 85379; 85610; 94640; 96360; 99284

== ENCOUNTER 2022-07-15 04:57 | Day surgery (SDC) | payer BC, MEDICARE ==
[2022-07-15] MEDS ORDERED: CEFAZOLIN 2 GM-D5W BAG** 2 GM/50 ML ML IV SCH (05:30)
[2022-07-15] MEDS ORDERED: Lactated Ringers 1,000 ML IV SCH (05:30)
[2022-07-15] MEDS ORDERED: DIPRIVAN 200 MG/20 ML IV ONE (06:35)
[2022-07-15] MEDS ORDERED: Versed 2 MG/2 ML Injection ONE (06:35)
[2022-07-15] MEDS ORDERED: Naropin 0.5% 30 ML VIAL ONE (06:35)
[2022-07-15] MEDS ORDERED: Zemuron 100 MG/10 ML ONE (06:35)
[2022-07-15] MEDS ORDERED: SUBLIMAZE 100 MCG/2 ML ONE ×2 (06:35→08:23)
[2022-07-15] MEDS ORDERED: Zofran 4 MG/2 ML VIAL ONE (07:20)
[2022-07-15] MEDS ORDERED: Decadron 4 MG INJ ONE (07:20)
[2022-07-15] MEDS ORDERED: BRIDION 200MG/2ML IV ONE (07:59)
[2022-07-15] MEDS ORDERED: TORAdol 30 mg Injection ONE (07:59)
[2022-07-15] MEDS ORDERED: Ephedrine Sulfate 50 MG/ML ONE (08:58)
[2022-07-15 10:10] VITALS: PULSE 75
[2022-07-15 10:35] VITALS: BP 125/80; O2SAT 94
--- NOTE | 2022-07-15 11:59 | OP ---
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 2) Partial Achilles tendon rupture. 3) Acute degeneration tendon rupture. 4) Right ankle pain. 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 2) Partial Achilles tendon rupture. 3) Acute degeneration tendon rupture. 4) Right ankle pain. PROCEDURE: Primary repair of Achilles tendon right ankle. SURGEON: Rasheed Mann DPM. TYPE COPYIST: None. ANESTHESIA: General with a postoperative regional block. ESTIMATED BLOOD LOSS: Less than 10 cc. MATERIALS: 4.0 Monocryl, 3-0 Nylon, Karlo BroadBand suture Achilles. INJECTABLES: See anesthesia report for details. INDICATION FOR PROCEDURE: Gee is a very pleasant 61-year-old male well known to my service for pain to the Achilles tendon on right side. He has been seen by multiple providers for this issue and has failed physical therapy home stretching exercises, anti-inflammatories, no treatment at home, nonweight bearing and medical management for this issue. The patient has recently underwent an injury that reinjured the tendon and was suspected of a partial rupture. At this time MRI was taken and it demonstrated a significant amount of fluid collection at the posterior aspect of the Achilles tendon with significant degenerative changes to the Achilles tendon with approximately 17 mm of thickening. At this time, the patient is willing to proceed with surgical intervention. No guarantees were provided as to the outcome of surgical intervention at this time. The patient is aware of all of the risks, benefits and complications of the procedure including but not limited to infection, hematoma, seroma, possibility of delayed wound healing, nonwound healing, possibility of delayed tendon healing and nontendon healing and possibility of tendon rupture. This is not typical however this has all been discussed with the patient prior to surgical intervention. The patient understands all of this and wishes to proceed. DESCRIPTION OF PROCEDURE AND FINDINGS: The patient was brought to the OR and placed on the OR table in the prone position. At this time, general anesthesia was administered until the patient was sedated. A well-padded thigh tourniquet was applied to the patient's right thigh and the tourniquet was set to 300 mm of Mercury. At this time the right leg was prepped and draped in the typical sterile fashion and lowered onto the surgical field. At this time, attention was directed to the posterior aspect of the Achilles tendon where a palpable mass was identified in conjunction with the directed area on the MRI. A linear incision was made utilizing a 10 blade down to the level of the paratenon. The paratenon was inspected and determined be thickened as well as a significant amount of hematoma was identified at this area which correlated with the fluid collection that was seen on the MRI. At this time the exterior of the paratenon as well as the exterior of the tendon was inspected and deemed to be diseased, this was debrided and handed off the field for further inspection as well as sending off for pathology. At this time the tendon was split longitudinally and the inner aspect of the tendon was debrided of its calcific and diseased portions of tendon. Most of the disease did appear to be at the superficial area to the incision site. Deep debridement did take place in order to debulk the tendon. At this time, an all inside method simple interrupted sutures were utilized to coapt the inner aspect of the Achilles tendon. A running interlocking stitch was performed utilizing 4-0 Monocryl. Following this a Karlo BroadBand suture was then utilized to bring the tendon together in a modified Norberto stitch anchoring it distally or tying it off distally within the tendon so as to provide for no irritation to the tendon with flexion. At this time copious amounts of sterile saline were utilized to flush the surgical site. 4-0 Monocryl was utilized to repair the nondiseased portion of the paratenon. The skin was then coapted utilizing 4-0 Monocryl and 3-0 Nylon in a simple interrupted buried type fashion and horizontal mattress type fashion for the skin. Dressing consisted of Betadine, Adaptic, 4x4, Kerlix and a well-padded posterior splint. The patient was then provided a popliteal block following the procedure and returned to the postoperative anesthesia care unit with vital signs stable and vascular status intact. The patient handled the anesthesia as well as the procedure without significant complication. Postoperative orders as indicated in the patient's discharge chart.
== END 2022-07-15 11:30 | disposition home or self-care (01) ==
LOC: SDC 04:57
PROVIDERS: ATTEND Podiatrist Foot & Ankle Surgery
DX: M76.61 Achilles tendinitis, right leg (principal); M66.871 Spontaneous rupture of other tendons, right ankle and foot; M25.571 Pain in right ankle and joints of right foot
CPT/HCPCS: 76937; J0690; J1100; J1885; J2250; J2405; J2704; J2795; J3010

== ENCOUNTER 2023-01-03 19:47 | Emergency (ER) | payer BC, MEDICARE ==
[2023-01-03 20:30] VITALS: TEMP 97.9
[2023-01-03] MEDS ORDERED: Sodium Chloride 0.9% 1000 ML 1,000 ML ONE (21:13)
[2023-01-03] MEDS ORDERED: Zofran 4 MG/2 ML VIAL ONE (21:13)
[2023-01-03] MEDS ORDERED: MORPHINE SULFATE 4 MG INJ ONE ×2 (21:13→23:22)
[2023-01-03] MEDS: Zofran 4 MG/2 ML VIAL IV ONE (21:15)
[2023-01-03] MEDS: MORPHINE SULFATE 4 MG INJ IV ONE ×2 (21:15→23:23)
[2023-01-03] MEDS: Sodium Chloride 0.9% 1000 ML 1,000 ML IV STA (21:15)
[2023-01-03 21:16] LABS: Absolute Neutrophil Ct (ANC) 5.68 x10^3/uL (1.4-6.9); BASOPHIL % 0.7 % (0.0-0.4); Basophil (Absolute #) 0.06 x10^3/uL (0-0.4); Eosinophil % 3.8 % (0.00-5.0); Eosinophil (Absolute #) 0.31 x10^3/uL (0-0.5); Hematocrit 44.3 % (42-50); Hemoglobin 14.2 g/dL (12.5-18.0); IMMATURE GRAN # 0.02 x10^3u/L (0.00-0.03); IMMATURE GRAN % 0.2 % (0.00-0.4); Lymphocyte (Absolute #) 1.65 x10^3/uL (1.0-4.6); Lymphocytes % 20.2 % (24.0-44.0); Mean Cell Volume 90.4 fL (78-100); Mean Corpuscular Hgb Concent. 32.1 g/dL (32-36); Mean Platelet Volume 10.4 fL (7.5-11.0); Monocyte (Absolute #) 0.46 x10^3/uL (0.0-1.3); Monocytes % 5.6 % (0.0-12.0); Neutrophil % 69.5 % (36.0-66.0); Platelet Count 269 x10^3/uL (150-450); Red Cell Distribution Width 12.8 % (11.5-14.0); White Blood Count 8.2 x10^3/uL (4.0-10.5)
[2023-01-03 21:22] LABS: ALBUMIN 4.2 g/dL (3.5-5.0); ALKALINE PHOSPHATASE 112 U/L (38-126); ANION GAP 11.4 MEQ/L (5-15); BLOOD UREA NITROGEN 17 mg/dL (9-20); CHLORIDE 105 mmol/L (98-107); Calcium 9.1 mg/dL (8.4-10.2); Carbon Dioxide 29 mmol/L (22-30); Creatinine 1 1.05 mg/dL (0.66-1.25); EST GLOMERULAR FILTRATION RATE > 60.0 ML/MIN; Glucose 122 mg/dL (74-106); LIPASE 89 U/L (23-300); Potassium 3.9 mmol/L (3.5-5.1); SGOT/AST 34 U/L (17-59); SGPT/ALT 32 U/L (0-50); SODIUM 141 mmol/L (137-145); Total Protein 7.1 g/dL (6.3-8.2)
--- NOTE | 2023-01-03 22:07 | ERPHSYRPT ---
- History of Present Illness Time Seen by Provider: 01/03/23 20:15 Source: patient Exam Limitations: no limitations Patient Subjective Stated Complaint: pt states I had IBS before and this feels the same Triage Nursing Assessment: pt ambulated into the er; pt is axo x4; c/o lower abd pain; pt denies N/V; c/o diarrhea; tenderness to lower abd; mucus membranes pink and moist; skin PDW; no respiratory distress present; dry hacking cough present; vitals wnl Physician History: Patient is a 62-year-old male presents to our ED for evaluation of lower abdominal pain. Patient states pain started approximately 2 hours prior to arrival. Pain started acutely and is associated with diarrhea. No nausea or vomiting. Patient reports a history of irritable bowel syndrome. Patient states he feels that he is having an episode of irritable bowel syndrome as the symptoms are similar. Patient also advises that he is currently on antibiotic for a dental infection. Patient has no other complaints. No trauma. No fever. Symptoms are mild to moderate in intensity. No specific worsening improving factors. at bedside. They voice no other complaints or concerns at this time. Timing/Duration: today Severity: moderate Modifying Factors: Improves With: nothing Associated Symptoms: denies symptoms Allergies/Adverse Reactions: No Known Drug Allergies Allergy (Verified 01/03/23 20:04) Home Medications: Hydroxyzine HCl 25 mg [Atarax 25 mg] 50 mg PO HS 02/05/21 [History] Omeprazole 40 mg PO DAILY 02/05/21 [History] Cephalexin Mh 500 mg [Keflex 500 mg] 500 mg PO TID 01/03/23 [History] Citalopram Hydrobromide [Celexa] 10 mg PO DAILY 01/03/23 [History] Hx Tetanus, Diphtheria Vaccination/Date Given: No (unsure) Hx Influenza Vaccination/Date Given: Yes Hx Pneumococcal Vaccination/Date Given: Yes Travel Risk - International Travel Have you traveled outside of the country in past 3 weeks: No - Coronavirus Screening Are you exhibiting any of the following symptoms?: No Close contact with a COVID-19 positive Pt in past 14-21 Days: No - Vaccine Status Have you recieved a Covid-19 vaccination: Yes Bladder Changer: Moderna - Vaccination Dates Date of 2cond Vaccination (if applicable): September 2020 - Review of Systems Constitutional: No Symptoms, No Fever, No Chills Eyes: No Symptoms Ears, Nose, & Throat: No Symptoms Respiratory: No Symptoms, No Cough, No Dyspnea Cardiac: No Symptoms, No Chest Pain, No Edema, No Syncope Abdominal/Gastrointestinal: No Symptoms, No Abdominal Pain, No Nausea, No Vomiting, No Diarrhea Genitourinary Symptoms: No Symptoms, No Dysuria Musculoskeletal: No Symptoms, No Back Pain, No Neck Pain Skin: No Symptoms, No Rash Neurological: No Symptoms, No Dizziness, No Focal Weakness, No Sensory Changes Psychological: No Symptoms Endocrine: No Symptoms Hematologic/Lymphatic: No Symptoms Immunological/Allergic: No Symptoms All Other Systems: Reviewed and Negative - Past Medical History Pertinent Past Medical History: Yes Neurological History: No Pertinent History ENT History: Other Cardiac History: No Pertinent History Respiratory History: No Pertinent History Endocrine Medical History: No Pertinent History Musculoskeletal History: Osteoarthritis GI Medical History: GERD, Irritable Bowel Psycho-Social History: Anxiety, Depression Other Medical History: SX HX: CATARACT, CHOLECYSTECTOMY, DETACHED RETINA REPAIR. - Past Surgical History Past Surgical History: Yes Gastrointestinal: Cholecystectomy, Hernia Repair Other Surgical History: Tubes in ears when a child and 2 hernia repairs - Social History Smoking Status: Never smoker Exposure to second hand smoke: No Drug Use: none Patient Lives Alone: No - Nursing Vital Signs Nursing Vital Signs: Initial Vital Signs Temperature 97.9 F 01/03/23 20:08 Pulse Rate 84 01/03/23 20:08 Respiratory Rate 20 01/03/23 20:08 Blood Pressure 124/95 01/03/23 20:08 O2 Sat by Pulse Oximetry 100 01/03/23 20:08 Pain Scale Pain Intensity 7 - Physical Exam General Appearance: no apparent distress, alert Eye Exam: PERRL/EOMI, eyes nml inspection Ears, Nose, Throat Exam: normal ENT inspection, TMs normal, pharynx normal, moist mucous membranes Neck Exam: normal inspection, non-tender, supple, full range of motion Respiratory Exam: normal breath sounds, lungs clear, No respiratory distress Cardiovascular Exam: regular rate/rhythm, normal heart sounds, normal peripheral pulses Gastrointestinal/Abdomen Exam: soft, normal bowel sounds, tenderness (Lower abdominal tenderness mostly left lower quadrant), No mass Back Exam: normal inspection, normal range of motion, No CVA tenderness, No vertebral tenderness Extremity Exam: normal inspection, normal range of motion, pelvis stable Neurologic Exam: alert, oriented x 3, cooperative, normal mood/affect, nml cerebellar function, nml station & gait, sensation nml, No motor deficits Skin Exam: normal color, warm, dry, No rash Lymphatic Exam: No adenopathy SpO2 Interpretation: normal SpO2: 96 O2 Delivery: Room Air - Course Nursing assessment & vital signs reviewed: Yes - CT Exams Abdomen/Pelvis CT Interpretation: Tele-radiologist Report (No comps. Scattered diverticulosis with mild sigmoid diverticulitis. No free fluid or free air. Small bilateral fatty inguinal hernias) Ordered Tests: Active Orders 24 hr Category Date Time Status IV Insertion STAT Care 01/03/23 21:09 Active ABDOMEN AND PELVIS W/0 CONTRAS [CT] Stat Exams 01/03/23 21:10 Taken CBC W DIFF Stat Lab 01/03/23 21:00 Completed CMP Stat Lab 01/03/23 21:00 Completed LIPASE Stat Lab 01/03/23 21:00 Completed UA W/RFX UR CULTURE Stat Lab 01/03/23 22:17 Completed Medication Summary Discontinued Medications Generic Name Dose Route Start Last Admin Trade Name Freq PRN Reason Stop Dose Admin Hydrocodone Bitart/Acetaminophen 4 tab 01/03/23 22:40 01/03/23 22:51 Hydrocodone/Apap 5/325 1 Tab Tablet PO 01/03/23 22:41 4 tab SENT HOME W/ PATIENT ONE Administration Hydrocodone Bitart/Acetaminophen Confirm 01/03/23 22:47 Hydrocodone/Apap 5/325 1 Tab Tablet Administered 01/03/23 22:48 Dose 4 tab .ROUTE .STK-MED ONE Sodium Chloride 1,000 mls @ 999 mls/hr 01/03/23 21:09 01/03/23 22:51 Sodium Chloride 0.9% 1000 Ml IV 01/03/23 22:09 Infused .Q1H1M STA Infusion Sodium Chloride Confirm 01/03/23 21:13 Sodium Chloride 0.9% 1000 Ml Administered 01/03/23 21:14 Dose 1,000 mls @ ud .ROUTE .STK-MED ONE Piperacillin Sod/Tazobactam 100 mls @ 200 mls/hr 01/03/23 22:37 01/03/23 22:40 Sod 3.375 gm/ Sodium Chloride IV 01/03/23 23:06 200 mls/hr STAT ONE Administration Sodium Chloride Confirm 01/03/23 22:39 Sodium Chloride 100ml Mini-Bag Plus Administered 01/03/23 22:40 Dose 100 mls @ ud IV .STK-MED ONE Morphine Sulfate 4 mg 01/03/23 21:09 01/03/23 21:15 Morphine Sulfate 4 Mg/Ml Injection IV 01/03/23 21:10 4 mg STAT ONE Administration Morphine Sulfate Confirm 01/03/23 21:13 Morphine Sulfate 4 Mg/Ml Injection Administered 01/03/23 21:14 Dose 4 mg .ROUTE .STK-MED ONE Morphine Sulfate 4 mg 01/03/23 23:21 Morphine Sulfate 4 Mg/Ml Injection IV 01/03/23 23:22 STAT ONE Ondansetron HCl 4 mg 01/03/23 21:09 01/03/23 21:15 Ondansetron Hcl 4 Mg/2 Ml Vial IV 01/03/23 21:10 4 mg STAT ONE Administration Ondansetron HCl Confirm 01/03/23 21:13 Ondansetron Hcl 4 Mg/2 Ml Vial Administered 01/03/23 21:14 Dose 4 mg .ROUTE .STK-MED ONE Piperacillin Sod/Tazobactam Sod Confirm 01/03/23 22:39 Piperacillin/Tazobactam Sodium 3.375 Gm Vial Administered 01/03/23 22:40 Dose 3.375 gm IV .STK-MED ONE Lab/Rad Data: Laboratory Result Diagrams 01/03/23 21:00 01/03/23 21:00 Laboratory Results 01/03/23 01/03/23 01/03/23 Range/Units 22:17 21:00 21:00 WBC 8.2 (4.0-10.5) x10^3/uL RBC 4.90 (4.1-5.6) x10^6/uL Hgb 14.2 (12.5-18.0) g/dL Hct 44.3 (42-50) % MCV 90.4 (78-100) fL MCH 29.0 (26-32) pg MCHC 32.1 (32-36) g/dL RDW 12.8 (11.5-14.0) % Plt Count 269 (150-450) x10^3/uL MPV 10.4 (7.5-11.0) fL Gran % 69.5 H (36.0-66.0) % Immature Gran % (Auto) 0.2 (0.00-0.4) % Nucleat RBC Rel Count 0.0 (0.00-0.1) % Eos # (Auto) 0.31 (0-0.5) x10^3/uL Immature Gran # (Auto) 0.02 (0.00-0.03) x10^3u/L Absolute Lymphs (auto) 1.65 (1.0-4.6) x10^3/uL Absolute Monos (auto) 0.46 (0.0-1.3) x10^3/uL Absolute Nucleated RBC 0.00 (0.00-0.01) x10^3u/L Lymphocytes % 20.2 L (24.0-44.0) % Monocytes % 5.6 (0.0-12.0) % Eosinophils % 3.8 (0.00-5.0) % Basophils % 0.7 (0.0-0.4) % Absolute Granulocytes 5.68 (1.4-6.9) x10^3/uL Basophils # 0.06 (0-0.4) x10^3/uL Sodium 141 (137-145) mmol/L Potassium 3.9 (3.5-5.1) mmol/L Chloride 105 (98-107) mmol/L Carbon Dioxide 29 (22-30) mmol/L Anion Gap 11.4 (5-15) MEQ/L BUN 17 (9-20) mg/dL Creatinine 1.05 (0.66-1.25) mg/dL Estimated GFR > 60.0 ML/MIN Glucose 122 H (74-106) mg/dL Calcium 9.1 (8.4-10.2) mg/dL Total Bilirubin 0.60 (0.2-1.3) mg/dL AST 34 (17-59) U/L ALT 32 (0-50) U/L Alkaline Phosphatase 112 (38-126) U/L Serum Total Protein 7.1 (6.3-8.2) g/dL Albumin 4.2 (3.5-5.0) g/dL Lipase 89 (23-300) U/L Urine Color Dark Yellow (Yellow) Urine Appearance Clear (Clear) Urine pH 5.0 (4.6-8.0) Ur Specific [place] >=1.030 A (1.005-1.030) Urine Protein Trace A (Negative) Urine Glucose (UA) Negative (Negative) mg/dL Urine Ketones Trace A (Negative) Urine Blood Negative (Negative) Urine Nitrite Negative (Negative) Urine Bilirubin Negative (Negative) Urine Urobilinogen 1.0 A (0.2) mg/dL Ur Leukocyte Esterase Trace A (Negative) U Hyaline Cast (Auto) NONE SEEN (0-2) /LPF Urine Microscopic RBC 0-2 (0-5) /HPF Urine Microscopic WBC 6-10 A (0-5) /HPF Ur Epithelial Cells None Seen (None Seen) /HPF Urine Bacteria None Seen (None Seen) /HPF Urine Culture Reflexed NO (NO) - Progress Progress: improved Progress Note: Patient is a 62-year-old male presents to our ED for evaluation of abdominal pain and diarrhea. CT abdomen pelvis reveals mild sigmoid diverticulitis. CBC CMP within normal limits. Lipase negative. Patient received morphine 4 mg x 2 for pain. Patient received for Coleharbor pills 10/05/2024 for home. A dose of Zosyn administered in our ED along with Zofran. Patient reassessed. He states he is ready for discharge. Patient declined admission for antibiotics. Patient prefers outpatient therapy instead. Patient understands the importance of clear liquid diet. at bedside. They voiced no other complaints or concerns at this time. Portions of this note were created with voice recognition technology. There may be grammatical, spelling, punctuation or sound alike errors Complexity of problems addressed is moderate acute complicated Complex of data reviewed and analyzed is moderate. Test ordered. Test reviewed and analyzed. Clinical correlation made between findings on H&P. Risk for complication and or risk morbidity/mortality of patient management is high. Patient received IV controlled medication for pain control. Patient discharged home with Coleharbor. Coleharbor prescription forwarded to patient's pharmacy along with antibiotic prescription. Patient agrees to follow-up with his primary care doctor within 48 hours for reevaluation. Time to discharge patient is approximately 15 minutes. Vital stable. Plan of care established for shared decision making. No social determinants of health present to impede follow-up. Portions of this note were created with voice recognition technology. There may be grammatical, spelling, punctuation or sound alike errors 01/03/23 23:22 Counseled pt/family regarding: lab results, diagnosis, need for follow-up, rad results - Departure Departure Disposition: Home Clinical Impression: Bilateral fatty inguinal hernias, Diverticulitis Condition: Stable Critical Care Time: No Referrals: ROSA ISELA HONG MD [Primary Care Provider] - Follow up/PCP as directed Instructions: Diverticulitis (DC) Additional Instructions: Discharge/Care Plan MARQUITA GONZALEZ was seen on 01/03/23 in the Emergency Room. The patient was counseled regarding Diagnosis,Lab results, Imaging studies, need for follow up a nd when to return to the Emergency Room. Prescriptions given: Discharge Note I have spoken with the patient and/or caregivers. I have explained the patient's condition, diagnosis and treatment plan based on the information available to me at this time. I have answered the patient's and/or caregiver's questions and addressed any concerns. The patient and/or caregivers have as good understanding of the patient's diagnosis, condition and treatment plan as can be expected at this point. The vital signs have been stable. The patient's condition is stable and appropriate for discharge from the emergency department. The patient will pursue further outpatient evaluation with the primary care physician or other designated or consulting physician as outlined in the discharge instructions. The patient and/or caregivers are agreeable to this plan of care and follow-up instructions have been explained in detail. The patient and/or caregivers have received these instruction. The patient/and or caregivers are aware that any significant change in condition or worsening of symptoms should prompt an immediate return to this or the closest emergency department or call 911. Prescriptions: Hydrocodone/APAP 5/325 [Cole[place]bor 5/325 mg] 1 each PO Q6H PRN PRN 3 Days #10 tablet MDD 4 PRN Reason: Pain Amox Tr/Potass Clav. 875 mg [Augmentin 875-125 Tablet] 875 mg PO BID 7 Days #14 tablet
[2023-01-03 22:29] LABS: Appearance Clear (Clear); Bacteria None Seen /HPF (None Seen); Bilirubin Negative (Negative); Blood Negative (Negative); Epithelial Cells None Seen /HPF (None Seen); Glucose, Urine Negative (Negative); Hyaline Casts NONE SEEN /LPF (0-2); Ketones Trace (Negative); Leukocyte Esterase Trace (Negative); Nitrite Negative (Negative); Protein,Urine Dip Trace (Negative); RBC 0-2 /HPF (0-5); Specific Gravity >=1.030 (1.005-1.030)
[2023-01-03 22:35] LABS: ADD URINE CULTURE? NO (NO)
[2023-01-03] MEDS ORDERED: PIPERACILLIN/TAZOBACTAM IV ONE (22:39)
[2023-01-03] MEDS ORDERED: Sodium Chloride 100ML MINI-BAG PLUS 100 ML IV ONE (22:39)
[2023-01-03] MEDS: PIPERACILLIN/TAZOBACTAM 3.375 GM in Sodium Chloride 100ML MINI-BAG PLUS 100 ML IV ONE (22:40)
[2023-01-03] MEDS ORDERED: NORCO 5/325 MG ONE (22:47)
[2023-01-03] MEDS: NORCO 5/325 MG PO ONE (22:51)
[2023-01-03 23:07] VITALS: BP 102/54; PULSE 82; RESP 18
[2023-01-03 23:28] VITALS: O2SAT 96
--- NOTE | 2023-01-04 09:06 | XRAY ---
Indication: Abdomen pain. Multiple contiguous axial images obtained through the abdomen and pelvis without contrast. Comparison: None Lung bases demonstrates minimal dependent atelectasis. Heart not enlarged. Stomach is distended with food/fluid. Noncontrasted stomach and bowel loops appear nonobstructed. Descending duodenum demonstrates 3 cm diverticulum. Scattered descending and sigmoid diverticulosis. Mid to proximal sigmoid demonstrates mild bowel wall thickening and pericolonic stranding favoring acute diverticulitis. No free fluid/air. Previous cholecystectomy. Remaining liver, pancreas, spleen, adrenal glands, kidneys, ureters, and bladder are unremarkable for noncontrast exam. Minimal scattered aortoiliac calcifications without AAA. Osseous structures intact with mild degenerative changes throughout the spine. Small fatty bilateral inguinal hernias. Impression: 1. Scattered colonic diverticulosis with sigmoid diverticulitis. No complications. 2. Chronic findings including duodenal diverticulum, chronic bony findings, arteriosclerotic disease, and fatty bilateral inguinal hernias.
== END 2023-01-03 23:33 | disposition home or self-care (01) ==
LOC: ED 19:47
DX: K40.20 Bilateral inguinal hernia, without obstruction or gangrene, not specified as recurrent (principal); K57.32 Diverticulitis of large intestine without perforation or abscess without bleeding; R10.30 Lower abdominal pain, unspecified; R19.7 Diarrhea, unspecified; Z79.891 Long term (current) use of opiate analgesic; Z79.899 Other long term (current) drug therapy
CPT/HCPCS: 36000; 36415; 74176; 80053; 81001; 83690; 85025; 96374; 96375; 96376; 99284; J2270; J2405; A9270-GY

== ENCOUNTER 2023-01-13 20:05 | Emergency (ER) | payer BC, MEDICARE ==
[2023-01-13 20:36] VITALS: RESP 18; TEMP 97.3
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
--- NOTE | 2023-01-13 21:49 | XRAY ---
Indication: Low back pain following fall. Multiple contiguous axial images obtained through the lumbar spine. Sagittal and coronal reformatted images obtained. Comparison: CT abdomen/pelvis January 03, 2023 Axial images negative for acute fracture, suspicious bony lesions, or spinal canal stenosis. There remains stable minimal/mild multilevel thoracolumbar endplate spurring and L5-S1 vacuum disc phenomena. Facets are symmetric. Sagittal and coronal reformatted images again demonstrate normal lumbar alignment with minimal L5-S1 disc space narrowing. No acute compression fracture or subluxation. Visualized noncontrasted soft tissues again demonstrates minimal aortoiliac calcifications. Impression: No change compared to CT 10 days ago. Again mild multilevel degenerative spondylosis greatest at L5-S1 and arteriosclerotic disease. No new/acute findings.
[2023-01-13 22:47] VITALS: BP 133/78; PULSE 78; O2SAT 98
== END 2023-01-13 22:45 | disposition home or self-care (01) ==
LOC: ED 20:05
DX: S39.012A Strain of muscle, fascia and tendon of lower back, initial encounter (principal); Y04.2XXA Assault by strike against or bumped into by another person, initial encounter; Z79.899 Other long term (current) drug therapy
CPT/HCPCS: 72131; 99283

== ENCOUNTER 2024-06-14 12:32 | Emergency (ER) | payer BC, MEDICARE ==
[2024-06-14] MEDS ORDERED: ZOFRAN ODT 4 MG PO ONE (12:33)
--- NOTE | 2024-06-14 13:42 | ERPHSYRPT ---
- History of Present Illness Time Seen by Provider: 06/14/24 13:42 Historian: patient, family Exam Limitations: no limitations Physician History: This is a 63-year-old overweight white male patient of Dr. Hong who presents to the emergency department with relatively sudden onset of vomiting and diarrhea that began at 3:00 this morning. Earlier in the week the had similar symptoms. Patient denies abdominal pain. Patient denies chest pain. Patient denies cough. Patient denies shortness of breath. He has not had a fever. Patient has a history gastroesophageal reflux disease, depression, anxiety and irritable bowel syndrome. Timing/Duration: today Activities at Onset: none Quality: other (No abdominal pain) Severity of Pain-Max: none Severity of Pain-Current: none Modifying Factors: Improves With: vomiting, other (Area) Associated Symptoms: diarrhea, loss of appetite, nausea, vomiting, weakness Previous symptoms: no prior history, no recent treatment Allergies/Adverse Reactions: No Known Drug Allergies Allergy (Verified 01/13/23 20:18) Home Medications: Hydroxyzine HCl 25 mg [Atarax 25 mg] 50 mg PO HS 02/05/21 [History] Omeprazole 40 mg PO DAILY 02/05/21 [History] Citalopram Hydrobromide [Celexa] 10 mg PO DAILY 01/03/23 [History] Hx Tetanus, Diphtheria Vaccination/Date Given: No (unsure) Hx Influenza Vaccination/Date Given: Yes Hx Pneumococcal Vaccination/Date Given: Yes Travel Risk - International Travel Have you traveled outside of the country in past 3 weeks: No - Emerging Infectious Disease Are you exhibiting symptoms associated with any current EIDs: Yes Symptoms: Diarrhea, Vomitting - Review of Systems Constitutional: Weakness Eyes: No Symptoms Ears, Nose, & Throat: No Symptoms Respiratory: No Symptoms Cardiac: No Symptoms Abdominal/Gastrointestinal: Nausea, Vomiting, Diarrhea, Appetite Changes Genitourinary Symptoms: No Symptoms Musculoskeletal: No Symptoms Skin: No Symptoms Neurological: No Symptoms Psychological: No Symptoms Endocrine: No Symptoms Hematologic/Lymphatic: No Symptoms Immunological/Allergic: No Symptoms All Other Systems: Reviewed and Negative - Past Medical History Pertinent Past Medical History: Yes Neurological History: No Pertinent History ENT History: Other Cardiac History: No Pertinent History Respiratory History: No Pertinent History Endocrine Medical History: No Pertinent History Musculoskeletal History: Osteoarthritis GI Medical History: GERD, Irritable Bowel Psycho-Social History: Anxiety, Depression Other Medical History: SX HX: CATARACT, CHOLECYSTECTOMY, DETACHED RETINA REPAIR. - Past Surgical History Past Surgical History: Yes Gastrointestinal: Cholecystectomy, Hernia Repair Genitourinary: No Pertinent History Musculoskeletal: No Pertinent History Other Surgical History: Tubes in ears when a child and 2 hernia repairs - Social History Smoking Status: Never smoker Exposure to second hand smoke: No Drug Use: none Patient Lives Alone: No - Nursing Vital Signs Nursing Vital Signs: Initial Vital Signs Temperature 97.5 F 06/14/24 13:39 Pulse Rate 114 H 06/14/24 13:39 Respiratory Rate 20 06/14/24 13:39 Blood Pressure 128/101 06/14/24 13:39 O2 Sat by Pulse Oximetry 94 L 06/14/24 13:39 Pain Scale Pain Intensity 0 - Physical Exam General Appearance: mild distress, alert, anxiety Eye Exam: PERRL/EOMI, eyes nml inspection Ears, Nose, Throat Exam: normal ENT inspection, moist mucous membranes Neck Exam: normal inspection, non-tender, supple, full range of motion Respiratory Exam: normal breath sounds, lungs clear, No chest tenderness, No respiratory distress Cardiovascular Exam: normal peripheral pulses, tachycardia Gastrointestinal/Abdomen Exam: soft, normal bowel sounds, No tenderness Rectal Exam: not done Back Exam: normal inspection, normal range of motion, No CVA tenderness, No vertebral tenderness Extremity Exam: normal inspection, normal range of motion, pelvis stable Neurologic Exam: alert, oriented x 3, cooperative, card boxer II-XII nml as tested, nml cerebellar function, nml station & gait, sensation nml Skin Exam: normal color, warm, dry Lymphatic Exam: No adenopathy SpO2 Interpretation: normal O2 Delivery: Room Air - Course Nursing assessment & vital signs reviewed: Yes Ordered Tests: Active Orders 24 hr Category Date Time Status IV Insertion STAT Care 06/14/24 13:56 Active AMYLASE Stat Lab 06/14/24 13:55 Completed CBC W DIFF Stat Lab 06/14/24 13:55 Completed CMP Stat Lab 06/14/24 13:55 Completed LIPASE Stat Lab 06/14/24 13:55 Completed MONO SCREEN Stat Lab 06/14/24 13:55 Completed UA W/RFX UR CULTURE Stat Lab 06/14/24 15:05 Completed Medication Summary Discontinued Medications Generic Name Dose Route Start Last Admin Trade Name Freq PRN Reason Stop Dose Admin Sodium Chloride 1,000 mls @ 999 mls/hr 06/14/24 13:56 06/14/24 15:33 Sodium Chloride 0.9% 1000 Ml IV 06/14/24 14:56 Infused .Q1H1M STA Infusion Sodium Chloride Confirm 06/14/24 14:00 Sodium Chloride 0.9% 1000 Ml Administered 06/14/24 14:01 Dose 1,000 mls @ ud .ROUTE .STK-MED ONE Lactated Ringer's 1,000 mls @ 999 mls/hr 06/14/24 15:33 06/14/24 15:38 Lactated Ringers IV 06/14/24 16:33 999 mls/hr .Q1H1M ONE Administration Lactated Ringer's Confirm 06/14/24 15:37 Lactated Ringers Administered 06/14/24 15:38 Dose 1,000 mls @ ud IV .STK-MED ONE Pantoprazole Sodium 40 mg 06/14/24 13:56 06/14/24 14:01 Pantoprazole 40 Mg Vial IV 06/14/24 13:57 40 mg STAT ONE Administration Pantoprazole Sodium Confirm 06/14/24 14:00 Pantoprazole 40 Mg Vial Administered 06/14/24 14:01 Dose 40 mg IV .STK-MED ONE Prochlorperazine Edisylate 5 mg 06/14/24 13:56 06/14/24 14:01 Prochlorperazine Edisylate 10 Mg/2 Ml Vial IV 06/14/24 13:57 5 mg STAT ONE Administration Prochlorperazine Edisylate Confirm 06/14/24 14:00 Prochlorperazine Edisylate 10 Mg/2 Ml Vial Administered 06/14/24 14:01 Dose 10 mg .ROUTE .STK-MED ONE Lab/Rad Data: Laboratory Result Diagrams 06/14/24 13:55 06/14/24 13:55 Laboratory Results 06/14/24 06/14/24 06/14/24 Range/Units 15:05 14:06 13:55 WBC (4.23-9.07) x10^3/uL RBC (4.63-6.08) x10^6/uL Hgb (13.7-17.5) g/dL Hct (40.1-51.0) % MCV (79.0-92.2) fL MCH (25.7-32.2) pg MCHC (32.3-36.5) g/dL RDW (11.6-14.4) % Plt Count (163-337) x10^3/uL MPV (9.4-12.4) fL Gran % (34.0-67.9) % Immature Gran % (Auto) (0.001-0.429) % Nucleat RBC Rel Count (0.00-0.2) % Eos # (Auto) (0.04-0.54) x10^3/uL Immature Gran # (Auto) (0.001-0.031) x10^3u/L Absolute Lymphs (auto) (1.32-3.57) x10^3/uL Absolute Monos (auto) (0.30-0.82) x10^3/uL Absolute Nucleated RBC (0.00-0.012) x10^3u/L Lymphocytes % (21.8-53.1) % Monocytes % (5.3-12.2) % Eosinophils % (0.8-7.0) % Basophils % (0.2-1.2) % Absolute Granulocytes (1.78-5.38) x10^3/uL Basophils # (0.01-0.08) x10^3/uL Sodium (135-145) mmol/L Potassium (3.5-5.1) mmol/L Chloride (98-107) mmol/L Carbon Dioxide (22-30) mmol/L Anion Gap (5-15) MEQ/L BUN (9-20) mg/dL Creatinine (0.66-1.25) mg/dL Estimated GFR ML/MIN Glucose (74-106) mg/dL Calcium (8.4-10.2) mg/dL Total Bilirubin (0.2-1.3) mg/dL AST (17-59) U/L ALT (0-50) U/L Alkaline Phosphatase (38-126) U/L Serum Total Protein (6.3-8.2) g/dL Albumin (3.5-5.0) g/dL Amylase (30-110) U/L Lipase (23-300) U/L Urine Color Dark Yellow (Yellow) Urine Appearance Clear (Clear) Urine pH 5.0 (4.6-8.0) Ur Specific Elk >=1.030 A (1.005-1.030) Urine Protein 30 (Negative) Urine Glucose (UA) Negative (Negative) mg/dL Urine Ketones Trace A (Negative) Urine Blood Negative (Negative) Urine Nitrite Negative (Negative) Urine Bilirubin Negative (Negative) Urine Urobilinogen 0.2 (0.2) mg/dL Ur Leukocyte Esterase Trace A (Negative) U Hyaline Cast (Auto) NONE SEEN (0-2) /LPF Urine Microscopic RBC 0-2 (0-5) /HPF Urine Microscopic WBC 3-5 (0-5) /HPF Ur Epithelial Cells Few (None Seen) /HPF Urine Bacteria Rare A (None Seen) /HPF Urine Culture Reflexed NO (NO) Monoscreen NEGATIVE (NEGATIVE) Influenza Type A Ag NEGATIVE (NEGATIVE) Influenza Type B Ag NEGATIVE (NEGATIVE) RSV (PCR) NEGATIVE (NEGATIVE) SARS-CoV-2 (PCR) NEGATIVE (NEGATIVE) 06/14/24 06/14/24 Range/Units 13:55 13:55 WBC 20.6 H (4.23-9.07) x10^3/uL RBC 5.90 (4.63-6.08) x10^6/uL Hgb 16.5 (13.7-17.5) g/dL Hct 48.5 (40.1-51.0) % MCV 82.2 (79.0-92.2) fL MCH 28.0 (25.7-32.2) pg MCHC 34.0 (32.3-36.5) g/dL RDW 13.0 (11.6-14.4) % Plt Count 273 (163-337) x10^3/uL MPV 11.5 (9.4-12.4) fL Gran % 93.2 H (34.0-67.9) % Immature Gran % (Auto) 0.6 H (0.001-0.429) % Nucleat RBC Rel Count 0.0 (0.00-0.2) % Eos # (Auto) 0.07 (0.04-0.54) x10^3/uL Immature Gran # (Auto) 0.12 H (0.001-0.031) x10^3u/L Absolute Lymphs (auto) 0.35 L (1.32-3.57) x10^3/uL Absolute Monos (auto) 0.83 H (0.30-0.82) x10^3/uL Absolute Nucleated RBC 0.00 (0.00-0.012) x10^3u/L Lymphocytes % 1.7 L (21.8-53.1) % Monocytes % 4.0 L (5.3-12.2) % Eosinophils % 0.3 L (0.8-7.0) % Basophils % 0.2 (0.2-1.2) % Absolute Granulocytes 19.13 H (1.78-5.38) x10^3/uL Basophils # 0.05 (0.01-0.08) x10^3/uL Sodium 140 (135-145) mmol/L Potassium 4.7 (3.5-5.1) mmol/L Chloride 104 (98-107) mmol/L Carbon Dioxide 26 (22-30) mmol/L Anion Gap 14.5 (5-15) MEQ/L BUN 24 H (9-20) mg/dL Creatinine 1.13 (0.66-1.25) mg/dL Estimated GFR 72.6 ML/MIN Glucose 156 H (74-106) mg/dL Calcium 9.5 (8.4-10.2) mg/dL Total Bilirubin 0.90 (0.2-1.3) mg/dL AST 41 (17-59) U/L ALT 34 (0-50) U/L Alkaline Phosphatase 89 (38-126) U/L Serum Total Protein 7.8 (6.3-8.2) g/dL Albumin 4.9 (3.5-5.0) g/dL Amylase 72 (30-110) U/L Lipase 75 (23-300) U/L Urine Color (Yellow) Urine Appearance (Clear) Urine pH (4.6-8.0) Ur Specific Elk (1.005-1.030) Urine Protein (Negative) Urine Glucose (UA) (Negative) mg/dL Urine Ketones (Negative) Urine Blood (Negative) Urine Nitrite (Negative) Urine Bilirubin (Negative) Urine Urobilinogen (0.2) mg/dL Ur Leukocyte Esterase (Negative) U Hyaline Cast (Auto) (0-2) /LPF Urine Microscopic RBC (0-5) /HPF Urine Microscopic WBC (0-5) /HPF Ur Epithelial Cells (None Seen) /HPF Urine Bacteria (None Seen) /HPF Urine Culture Reflexed (NO) Monoscreen (NEGATIVE) Influenza Type A Ag (NEGATIVE) Influenza Type B Ag (NEGATIVE) RSV (PCR) (NEGATIVE) SARS-CoV-2 (PCR) (NEGATIVE) - Progress Progress: improved, re-examined Progress Note: 06/14/24 15:42 My medical decision making and the assignment of moderate complexity to this patient's medical issue today is based on review of the patient's past medical history, review of patient's medication list, reviewed patient drug allergy list, history present illness and physical findings on examination. The workup in this patient includes placement of intravenous line, infusion of normal saline solution, CBC, CMP, amylase, lipase, urinalysis, viral swabs. The patient has a benign abdomen I do not think a CT scan of the abdomen pelvis is necessary. Differential diagnosis includes but is not limited to irritable bowel syndrome, pancreatitis, dehydration, urinary tract infection, viral illness 06/14/24 15:47 I interpreted the patient's laboratory data results. Based on the laboratory data results, the patient does have leukocytosis. This is likely secondary to multiple episodes of vomiting and diarrhea. Patient also has evidence of dehydration on urinalysis. Counseled pt/family regarding: lab results, diagnosis, need for follow-up - Departure Departure Disposition: Home Clinical Impression: Viral syndrome, Vomiting and diarrhea Condition: Stable Critical Care Time: No Referrals: ROSA ISELA HONG MD [Primary Care Provider] - Follow up/PCP as directed Additional Instructions: Drink plenty of clear liquids. Do not advance your diet until you are tolerating clear liquids well. Take your other medications as prescribed. Call your primary care provider on 06/17/2024, to make arrangements for follow-up appointment for further evaluation management. Prescriptions: Ondansetron ODT 4 MG [Zofran Odt 4 mg] 4 mg PO Q6H PRN PRN #10 tablet PRN Reason: Vomiting
[2024-06-14 13:44] VITALS: TEMP 97.5
[2024-06-14] MEDS ORDERED: Sodium Chloride 0.9% 1000 ML 1,000 ML ONE (14:00)
[2024-06-14] MEDS ORDERED: Compazine 10 MG/2 ML ONE (14:00)
[2024-06-14] MEDS ORDERED: PROTONIX 40 MG IV IV ONE (14:00)
[2024-06-14] MEDS: PROTONIX 40 MG IV IV ONE (14:01)
[2024-06-14] MEDS: Compazine 10 MG/2 ML IV ONE (14:01)
[2024-06-14] MEDS: Sodium Chloride 0.9% 1000 ML 1,000 ML IV STA (14:01)
[2024-06-14 14:03] LABS: Absolute Neutrophil Ct (ANC) 19.13 x10^3/uL (1.78-5.38); BASOPHIL % 0.2 % (0.2-1.2); Basophil (Absolute #) 0.05 x10^3/uL (0.01-0.08); Eosinophil % 0.3 % (0.8-7.0); Eosinophil (Absolute #) 0.07 x10^3/uL (0.04-0.54); Hematocrit 48.5 % (40.1-51.0); Hemoglobin 16.5 g/dL (13.7-17.5); IMMATURE GRAN # 0.12 x10^3u/L (0.001-0.031); IMMATURE GRAN % 0.6 % (0.001-0.429); Lymphocyte (Absolute #) 0.35 x10^3/uL (1.32-3.57); Lymphocytes % 1.7 % (21.8-53.1); Mean Cell Volume 82.2 fL (79.0-92.2); Mean Platelet Volume 11.5 fL (9.4-12.4); Monocyte (Absolute #) 0.83 x10^3/uL (0.30-0.82); Neutrophil % 93.2 % (34.0-67.9); Platelet Count 273 x10^3/uL (163-337); White Blood Count 20.6 x10^3/uL (4.23-9.07)
[2024-06-14 14:36] LABS: ALBUMIN 4.9 g/dL (3.5-5.0); ANION GAP 14.5 MEQ/L (5-15); BILIRUBIN,TOTAL 0.9 mg/dL (0.2-1.3); Calcium 9.5 mg/dL (8.4-10.2); Creatinine 1 1.13 mg/dL (0.66-1.25); EST GLOMERULAR FILTRATION RATE 72.6 ML/MIN; Potassium 4.7 mmol/L (3.5-5.1); Total Protein 7.8 g/dL (6.3-8.2)
[2024-06-14 14:46] LABS: INFLUENZA A NEGATIVE (NEGATIVE); INFLUENZA B NEGATIVE (NEGATIVE); RESPIRATORY SYNCTIAL VIRUS NEGATIVE (NEGATIVE); SARS-CoV-2 Xpert Express NEGATIVE (NEGATIVE)
[2024-06-14] MEDS ORDERED: Lactated Ringers 1,000 ML IV ONE (15:37)
[2024-06-14] MEDS: Lactated Ringers 1,000 ML IV ONE (15:38)
[2024-06-14 15:41] LABS: Appearance Clear (Clear); Bilirubin Negative (Negative); Blood Negative (Negative); Epithelial Cells Few /HPF (None Seen); Glucose, Urine Negative (Negative); Hyaline Casts NONE SEEN /LPF (0-2); Ketones Trace (Negative); Leukocyte Esterase Trace (Negative); Nitrite Negative (Negative); Protein,Urine Dip 30 (Negative); RBC 0-2 /HPF (0-5); Specific Gravity >=1.030 (1.005-1.030); Urobilinogen 0.2 mg/dL (0.2)
[2024-06-14 15:42] LABS: Bacteria Rare /HPF (None Seen)
[2024-06-14] MEDS ORDERED: ZOFRAN ODT 4 MG ONE (17:52)
[2024-06-14] MEDS: ZOFRAN ODT 4 MG PO ONE (17:56)
[2024-06-14 18:08] VITALS: BP 128/101; PULSE 96; RESP 18; O2SAT 96
[2024-06-14 18:34] LABS: Slide Review 1 YES
== END 2024-06-14 17:50 | disposition home or self-care (01) ==
LOC: ED 12:32
DX: B34.9 Viral infection, unspecified (principal); R11.2 Nausea with vomiting, unspecified; R19.7 Diarrhea, unspecified; Z79.899 Other long term (current) drug therapy
CPT/HCPCS: 0241U; 36415; 80053; 81001; 82150; 83690; 85025; 86308; 96374; 96375; 99284; Q0162